=== PATIENT | male | born 1960 | race Asian ===

== ENCOUNTER 2023-02-06 06:42 | Day surgery (SDC) | payer SELFPAY ==
--- NOTE | 2023-02-06 | PATH_ITS ---
[facility] Accession Number: [id number] No. of containers..05 Tissue . 01 Material submitted: . PART A: stomach - GASTRIC ANTRUM PART B: gastrointestinal site - GASTRIC ULCER PART C: colon - ASCENDING POLYPS PART D: colon - TRANSVERSE POLYP PART E: sigmoid colon - SIGMOID POLYPS . 01 Diagnosis: A. Stomach, Antrum, Biopsy: Helicobacter pylori gastritis with extensive intestinal metaplasia. Negative for dysplasia and malignancy. . B. Stomach, Ulcer, Biopsy: Helicobacter pylori gastritis with intestinal metaplasia and reactive stromal and epithelial changes suggestive of nearby erosion. Intestinal metaplasia is present in 4 of 5 fragments. Negative for dysplasia and malignancy. . C. Ascending colon, Polyps Tubular adenoma, 1 fragment. . D. Transverse Colon, Polyp: Tubular adenoma. . E. Sigmoid colon, Polyps: Tubular adenoma. Hyperplastic polyp. [facility] 02/11/2023 [facility] Local . 01 Electronically signed: . Erica Loja MD, Pathologist NPI- [id number] . 01 Gross description: . Part A: GASTRIC ANTRUM: Received in formalin is multiple fragment(s) of chavez, soft tissue measuring 0.7 x 0.5 x 0.1 cm in aggregate submitted entirely in 1 cassette(s) Part B: GASTRIC ULCER: Received in formalin is multiple fragment(s) of chavez, soft tissue measuring 0.8 x 0.4 x 0.1 cm in aggregate submitted entirely in 1 cassette(s) Part C: ASCENDING POLYPS : Received in formalin is 2 fragment(s) of chavez, soft tissue measuring 1.5 x 0.6 x 0.3 cm to 0.3 x 0.2 x 0.1 cm submitted entirely in 1 cassette(s) Part D: TRANSVERSE POLYP: Received in formalin is 2 fragment(s) of chavez, soft tissue measuring 0.5 x 0.3 x 0.2 cm to 0.2 x 0.1 x 0.1 cm submitted entirely in 1 cassette(s) Part E: SIGMOID POLYPS: Received in formalin is 2 fragment(s) of chavez, soft tissue measuring 0.5 x 0.3 x 0.1 cm to 0.3 x 0.2 x 0.1 cm submitted entirely in 1 cassette(s) /LEONARDO 02/08/2023 0206 Local . 01 Pathologist provided ICD-10: D12.2, D12.3, D12.5, R10.13, B96.81 . 01 CPT . 497165, 548859, 882056, 266355, 449713 Specimen Comment: A courtesy copy of this report has been sent to [phone] Performed at: 01 [facility] [address] [place] [address], [place], [place] [id number] MD Crispin Richards MD Phone: [phone]
[2023-02-06 07:16] VITALS: BP 147/74; PULSE 66; RESP 17; TEMP 36; O2SAT 99; BMI 26.2
[2023-02-06] MEDS: LACTATED RINGERS 1,000 ML 150 ML IV (07:26)
[2023-02-06] MEDS: DEXTROSE 50 % IN WATER 25 GM/50 ML SYRINGE IV (07:59)
--- NOTE | 2023-02-06 08:14 | P.HP_ITS ---
History of Present Illness History of Present Illness Date Patient Seen: 02/06/23 Time Patient Seen: 08:14 Chief complaint: EGD/Colonoscopy Narrative: Sathish is a 62-year-old man with family history colon cancer and a personal history epigastric pain dyspepsia. He is here for his EGD and colonoscopy. Please see the prior office note [facility] Medical History (Updated 12/23/22 @ 11:32 by Nickolas Hart MD) Glaucoma, left eye CKD (chronic kidney disease) Hyperlipemia Hypertension Diabetes Surgical History (Updated 12/23/22 @ 11:13 by Akash Elkins RN) Hx of cataract surgery Social History household members: spouse Smoking Status: Never smoker alcohol intake: never Meds Home Medications and Allergies Home Medications Medication Instructions Recorded Confirmed Type amlodipine 10 mg tablet 10 mg PO DAILY 12/23/22 02/06/23 History atorvastatin 20 mg tablet 20 mg PO DAILY 12/23/22 02/06/23 History finerenone 20 mg tablet (Kerendia) 20 mg PO DAILY 12/23/22 02/06/23 History insulin degludec 200 unit/mL (3 20 unit SUBCUT DAILY 12/23/22 02/06/23 History mL) subcutaneous pen (Tresiba FlexTouch U-200 insulin) pioglitazone 15 mg tablet 15 mg PO DAILY 12/23/22 02/06/23 History potassium bicarbonate-citric acid 10 meq PO DAILY 12/23/22 02/06/23 History 10 mEq effervescent tablet (Effer-K) valsartan 320 1 tab PO DAILY 12/23/22 02/06/23 History mg-hydrochlorothiazide 25 mg tablet peg 3350-electrolytes 236 240 ml PO Q10M #4,000 mL 01/02/23 02/06/23 Rx gram-22.74 gram-6.74 gram-5.86 gram solution (Golytely) Allergies Allergy/AdvReac Type Severity Reaction Status Date / Time No Known Drug Allergies Allergy Unverified 12/23/22 11:04 Exam Vital Signs (past 8 hours): - 02/06/23 07:16 Temperature 96.8 F L Pulse Rate 66 Respiratory Rate 17 Blood Pressure 147/74 H Pulse Oximetry 99 Oxygen Delivery Method Room Air Oxygen Delivery Method Room Air Const General: healthy appearing Resp Effort & Inspection: normal respiratory effort Assessment & Plan Assessment and plan (1) Family history of colon cancer: Status: Acute (2) Epigastric pain: Status: Acute Plan Plan to proceed EGD and colonoscopy
--- NOTE | 2023-02-06 08:59 | P.OP.EGD&C_ITS ---
Operative Date/Time/Diagnoses Date of procedure: 02/06/23 Time of procedure: 08:59 Pre-op diagnosis: Epigastric pain and family history of colon cancer Post-op diagnosis: same Procedure & Clinicians Study performed: EGD and colonoscopy Same procedure as scheduled: Yes Surgeon: Nickolas Hart Procedure Notes Procedure in detail: Surgeon: Nickolas Hart MD Anesthesia: Kathy Christiansen D.O. Procedure in detail: A timeout was performed. A bite blocked was placed and monitors were attached to the patient. The patient was positioned in the left lateral decubitus position. Sedation was administered. Once the patient was sedated the endoscope was inserted through the bite block and passed through the esophagus and stomach and into the duodenum. There were no abnormalities within the duodenal. We then withdrew the scope into the stomach. There was a well- defined ulceration along the lesser curve without any evidence of recent bleeding. Random biopsies were taken from the antrum as well as the mucosa adjacent to the ulcer. The endoscope was retroflexed and no other abnormalities were found. The endoscope was straightned and withdrawn into the esophagus. No abnormalities were seen within the esophagus. Findings: Moderate-sized ulcer along the lesser curve Next we repositioned the patient for a colonoscopy. A digital rectal exam was performed and was normal. The colonoscope was inserted and advanced to the cecum. The appendiceal orifice was identified and photographed. The scope was slowly withdrawn over greater than 6 minutes. There were 2 polyps in the ascending colon removed with a cold snare. One of them was about 5 mm and one was about a cm. There was 1 polyp in the transverse colon which was about 5 mm and removed with a cold snare. Were 2 polyps in the sigmoid colon each about 3 mm. One was removed with a cold snare and 1 was removed with cold forceps. The scope was retroflexed in the rectum and no other abnormalities were seen. Findings: Multiple polyps as detailed above. EBL: 5 mL Scope withdrawal time: 18 minutes Sedation minutes: 34 minutes Post-procedure Disposition: PACU
[2023-02-06 09:03] VITALS: BP 114/62; PULSE 63; RESP 14; TEMP 36.4; O2SAT 98
[2023-02-06 09:07] VITALS: BP 115/64; PULSE 63; RESP 11; O2SAT 98
[2023-02-06 09:12] VITALS: BP 126/68; PULSE 63; RESP 14; O2SAT 99
[2023-02-06 09:17] VITALS: BP 120/70; PULSE 59; RESP 10; TEMP 36.7; O2SAT 99
[2023-02-06 09:21] VITALS: BP 124/70; PULSE 64; RESP 20; TEMP 36.7; O2SAT 99
== END 2023-02-06 09:44 | disposition home or self-care (01) ==
PROVIDERS: Referring Provider Surgery; Visit Provider Surgery
PROC: 0DJ08ZZ Inspection of Upper Intestinal Tract, Via Natural or Artificial Opening Endoscopic (ICD-10-PCS; CPT 43235; principal; 2023-02-06 08:00)
PROC: 0DJD8ZZ Inspection of Lower Intestinal Tract, Via Natural or Artificial Opening Endoscopic (ICD-10-PCS; CPT 45378; 2023-02-06 08:00)
DX: Z12.11 Encounter for screening for malignant neoplasm of colon (principal); Z80.0 Family history of malignant neoplasm of digestive organs; R10.13 Epigastric pain; K29.60 Other gastritis without bleeding; B96.81 Helicobacter pylori [H. pylori] as the cause of diseases classified elsewhere; D12.2 Benign neoplasm of ascending colon; D12.3 Benign neoplasm of transverse colon; D12.5 Benign neoplasm of sigmoid colon; K63.5 Polyp of colon
CPT/HCPCS: 45385; 43239; 45380; 82962; J2704